=== PATIENT | female | born 1985 | race Hispanic/Latino ===

== ENCOUNTER 2016-10-14 01:27 | Emergency (ER) | payer SELFPAY ==
--- NOTE | 2016-10-15 01:39 | ED Elopement Review ---
ED Pt Elopement review - Results review Lab results: downtime results on paper) UA: Leukoesterase moderate, negative nitrite, moderate leukocytes, wbc 96, RBC 16, bacteria 1+, epithelial cells 0, mucous 3+, negative urine - Call Back decision Pt Call Back Decision: Call pt to return to ED [facility] (+ uti, needs to be evaluated and treated.)
== END 2016-10-14 01:41 | disposition left against medical advice (07) ==
LOC: ED 01:27
DX: R10.9 Unspecified abdominal pain (principal); Z53.21 Procedure and treatment not carried out due to patient leaving prior to being seen by health care provider

== ENCOUNTER 2016-11-25 13:59 | Emergency (ER) | payer SELFPAY ==
[2016-11-25 15:18] VITALS: BP 115/70
--- NOTE | 2016-11-25 16:13 | Emergency Department Report ---
HPI - General Chief Complaint: Recheck/Abnormal Lab/Rx Time Seen by Provider: 11/25/16 15:57 - HPI HPI: Patient is a 31-year-old female who presents to ED for treatment of urinary tract infection. Patient states she was called by the nurse from [facility] ER because her urine came back positive for bacterial infection. Patient states she has been having symptoms such as intracranial urination but denies dysuria hematuria or other symptoms. Patient also states she will write for refill of her clonazepam for her anxiety as she has been out of the medication for several days. He is not able to see her physician for the next 2 weeks. Patient denies fever/chills/nausea/vomiting/abdominal pain ED Past Medical Hx - Past Medical History Hx Psychiatric Treatment: Yes (ANXIETY / ADHD) Additional medical history: HERPES - Surgical History Hx Breast Surgery: Yes (BREAST AUGMENTATION) Additional Surgical History: - Social History Smoking Status: Never Smoker Substance Use Type: Alcohol, Prescribed - Medications Home Medications: Home Medications Medication Instructions Recorded Confirmed Last Taken Type Dextroamphetamine/Amphetamine 30 mg PO BID 11/25/16 11/25/16 Unknown History [Adderall 30 mg Tablet] Ibuprofen [Motrin] 800 mg PO Q8HR PRN #30 tablet 11/25/16 Unknown Rx LORazepam [Ativan] 1 mg PO BID #10 tab 11/25/16 Unknown Rx Sulfamethoxazole/Trimethoprim 1 each PO BID #14 tablet 11/25/16 Unknown Rx [Bactrim DS TAB] clonazePAM [KlonoPIN] 2 mg PO BID PRN 11/25/16 11/25/16 Unknown History valACYclovir [Valtrex] 500 mg PO BID #30 tablet 11/25/16 Unknown Rx ED Review of Systems ROS: Stated complaint: CALL BACK/UTI Other details as noted in HPI Constitutional: denies: chills, fever Eyes: denies: eye pain, eye discharge, vision change ENT: denies: ear pain, throat pain Respiratory: denies: cough, shortness of breath, wheezing Cardiovascular: denies: chest pain, palpitations Endocrine: no symptoms reported Gastrointestinal: denies: abdominal pain, nausea, diarrhea Genitourinary: frequency. denies: urgency, dysuria, hematuria, discharge Musculoskeletal: denies: back pain, joint swelling, arthralgia Skin: denies: rash, lesions Neurological: denies: headache, weakness, paresthesias Psychiatric: denies: anxiety, depression Hematological/Lymphatic: denies: easy bleeding, easy bruising Physical Exam - Physical Exam Vital Signs: Vital Signs 11/25/16 15:10 Temperature 98.2 F Pulse Rate 62 Respiratory 17 Rate Blood Pressure 115/70 O2 Sat by Pulse 100 Oximetry Physical Exam: GENERAL: Alert and oriented x3, no apparent distress, Normal Gait, atraumatic. HEAD: Head is normocephalic and a-traumatic. EYES: Extra ocular muscles are intact. Pupils are equal, round, and reactive to light and accommodation. NECK: Supple. Non edematous, No carotid bruits. No lymphadenopathy or thyromegaly. No C-spine tenderness LUNGS: Symetrical with respiration, No wheezing, no rales or crackles, CTAB. HEART: S1, S2 present, regular rate and rhythm without murmur, no rubs, no gallops. ABDOMEN: No organomegaly was noted,Positive bowel sounds, soft, and non- distended. . Nontender to palpation on all Quadrants, NO CVA tenderness. EXTREMITIES/MUSCULOSKELETAL: No cyanosis, clubbing, rash, lesions or edema. Full ROM bilaterally. UE/LE Pulses 2+ bilaterally. PSYCHIATRIC: Mood is congruent with affect, denies suicidal or homicidal ideations. SKIN: Warm and dry, No lesions, No ulceration or induration present. ED Course Vital Signs 11/25/16 15:10 Temperature 98.2 F Pulse Rate 62 Respiratory 17 Rate Blood Pressure 115/70 O2 Sat by Pulse 100 Oximetry ED Medical Decision Making - Medical Decision Making 31-year-old female presents with urinary tract infection ED course: Urinalysis ordered. Urinalysis shows a tract infection. She received Toradol in ED Discussed the patient cannot refill her clonazepam and Adderall and she will need to go see her physician to get a refill. His constipation to follow up with her psychiatrist and primary care physician. Patient is in no acute distress. Vital signs are normal Patient understands and states she will comply. Critical care attestation.: If time is entered above; I have spent that time in minutes in the direct care of this critically ill patient, excluding procedure time. ED Disposition Clinical Impression: Medication refill UTI (urinary tract infection) Qualifiers: Urinary tract infection type: acute cystitis Hematuria presence: with hematuria Qualified Code(s): N30.01 - Acute cystitis with hematuria Disposition: DISCHARGED TO HOME OR SELFCARE Is pt being admited?: No Does the pt Need Aspirin: No Condition: Stable Instructions: Urinary Tract Infection in Women (ED), Cellulitis (ED) Prescriptions: Ibuprofen [Motrin] 800 mg PO Q8HR PRN #30 tablet PRN Reason: Pain LORazepam [Ativan] 1 mg PO BID #10 tab Sulfamethoxazole/Trimethoprim [Bactrim DS TAB] 1 each PO BID #14 tablet valACYclovir [Valtrex] 500 mg PO BID #30 tablet Referrals: PRIMARY CARE, [Primary Care Provider] - 3-5 Days Forms: Work/School Release Form(ED) Time of Disposition: 16:54
[2016-11-25 16:40] LABS: Bacteria,Urine 1+ /HPF (Negative); Bilirubin,Urine NEG (Negative); Blood,Urine NEG (Negative); Ketones,Urine NEG (Negative); Leukocyte Esterase,Urine NEG (Negative); Mucus,Urine FEW /HPF; Nitrite,Urine NEG (Negative); Protein,Urine <15 mg/dL mg/dL (Negative); Urobilinogen,Urine < 2.0 mg/dL (<2.0)
[2016-11-25] MEDS ORDERED: TORADOL IM ONE (16:42)
== END 2016-11-25 17:07 | disposition home or self-care (01) ==
LOC: ED 13:59
DX: N30.01 Acute cystitis with hematuria (principal); Z76.0 Encounter for issue of repeat prescription; F41.9 Anxiety disorder, unspecified; F90.9 Attention-deficit hyperactivity disorder, unspecified type
CPT/HCPCS: 81001; 81025; 96372; 99283; J1885

== ENCOUNTER 2016-12-25 22:26 | Emergency (ER) | payer SELFPAY ==
[2016-12-25] MEDS ORDERED: PEPCID ONE (22:45)
[2016-12-25] MEDS ORDERED: BENADRYL PO ONE ×2 (22:45→22:48)
[2016-12-25] MEDS ORDERED: PEPCID PO ONE (22:48)
[2016-12-25 22:53] VITALS: BP 149/74
== END 2016-12-26 00:50 | disposition left against medical advice (07) ==
LOC: ED 22:26
DX: R21 Rash and other nonspecific skin eruption (principal); Z53.21 Procedure and treatment not carried out due to patient leaving prior to being seen by health care provider

== ENCOUNTER 2017-02-27 15:15 | Emergency (ER) | payer MEDICAID, OTHER ==
[2017-02-27 18:11] VITALS: BP 112/68
--- NOTE | 2017-02-27 21:04 | Emergency Department Report ---
Entered by STAS WHITE, acting as scribe for YAYO LOPEZ PA. HPI - General Chief Complaint: Medical Clearance Time Seen by Provider: 02/27/17 17:06 - HPI HPI: 31 y/o female with a PMHx of herpes, ADHD, and anxiety presents to the ED c/o a medication refill for Acyclovir 500 mg for herpes flare-up. Patient states she ran out of Acyclovir 500 mg BID 1 day ago. Denies fever, chills, abdominal pain , nausea, vomiting, chest pain, SOB, headache, and dizziness. Patient states she recently got insurance and wants referrals to primary care physicians. Patient also requests a refills for Clonazepam 2mg. NKDA. ED Past Medical Hx - Past Medical History Previous Medical History?: Yes Hx Psychiatric Treatment: Yes (ANXIETY / ADHD) Additional medical history: HERPES - Surgical History Past Surgical History?: Yes Hx Breast Surgery: Yes (BREAST AUGMENTATION) Additional Surgical History: - Social History Smoking Status: Never Smoker Substance Use Type: Alcohol - Medications Home Medications: Home Medications Medication Instructions Recorded Confirmed Last Taken Type Dextroamphetamine/Amphetamine 30 mg PO BID 11/25/16 11/25/16 Unknown History [Adderall 30 mg Tablet] LORazepam [Ativan] 1 mg PO BID #10 tab 11/25/16 Unknown Rx Sulfamethoxazole/Trimethoprim 1 each PO BID #14 tablet 11/25/16 Unknown Rx [Bactrim DS TAB] Ibuprofen [Motrin 800 MG tab] 800 mg PO Q8HR PRN #30 tablet 02/27/17 Unknown Rx clonazePAM [KlonoPIN] 2 mg PO DAILY PRN #12 tablet 02/27/17 Unknown Rx valACYclovir [Valtrex] 500 mg PO TID #40 tablet 02/27/17 Unknown Rx ED Review of Systems ROS: Stated complaint: RX REFILL Other details as noted in HPI Comment: All other systems reviewed and negative Constitutional: denies: chills, diaphoresis, fever, weakness Eyes: denies: eye pain, eye discharge, vision change ENT: denies: ear pain, throat pain Respiratory: denies: cough, orthopnea, shortness of breath, SOB with exertion, SOB at rest, stridor, wheezing Cardiovascular: denies: chest pain, palpitations, dyspnea on exertion, orthopnea , edema, syncope, paroxysmal nocturnal dyspnea Endocrine: no symptoms reported Gastrointestinal: denies: abdominal pain, nausea, vomiting, diarrhea Musculoskeletal: denies: back pain, joint swelling, arthralgia Skin: denies: rash, lesions Neurological: denies: headache, weakness, numbness, paresthesias Psychiatric: denies: anxiety, depression Hematological/Lymphatic: denies: easy bleeding, easy bruising Physical Exam - Physical Exam Vital Signs: Vital Signs 02/27/17 15:33 Temperature 98.5 F Pulse Rate 86 Respiratory 16 Rate Blood Pressure 101/71 O2 Sat by Pulse 100 Oximetry General: GENERAL: Patient is alert and oriented x 3. No apparent distress, normal gait, atraumatic. Physical Exam: HEAD: Head is normocephalic and atraumatic. EYES: Extraocular movements are intact. EARS: Symmetrical, atraumatic, non tender. NOSE: Nose symmetrical, nontender. Nares appeared normal. MOUTH:Mouth is well hydrated and without lesions. NECK: Supple. Non edematous, no carotid bruits. No lymphadenopathy or thyromegaly. LUNGS: Symmetrical with respiration. No wheezing, rales or crackles, CTAB. HEART: Regular rate and rhythm with normal S1/S2 present. No murmurs, rubs, or gallops. ABDOMEN: Soft, nondistended. Nontender to palpation on all quadrants. EXTREMITIES/MUSCULOSKELETAL: ROM intact, 2+ pulses in UE/LE, no pitting edema SKIN: Warm and dry. No lesions, ulceration or induration present NEUROLOGIC: No focal deficit. ED Course Vital Signs 02/27/17 15:33 Temperature 98.5 F Pulse Rate 86 Respiratory 16 Rate Blood Pressure 101/71 O2 Sat by Pulse 100 Oximetry ED Medical Decision Making - Medical Decision Making 31 year-old female presents with a medication refill for Acyclovir 500 mg for herpes flare-up. Discussed the patient acyclovir medication as prescribed. Referrals for psychiatrist, [facility], primary care physician or given to patient. Discussed patient's of the tissue With this referrals as to monitor and continue her care. Discussed the patient to follow instructions as given and follow-up with [facility] and primary care physician as referred. Patient states she has been approved for Medicaid and just needed the referral and will follow up with her referrals for continuation of her care and refills on her medication Discuss her symptoms return or worsen to return to the ED Vital signs are normal patient is in no acute distress Critical care attestation.: If time is entered above; I have spent that time in minutes in the direct care of this critically ill patient, excluding procedure time. ED Disposition Clinical Impression: Medication refill, Hx of herpes simplex infection Disposition: TO HOME OR SELFCARE Is pt being admited?: No Does the pt Need Aspirin: No Condition: Stable Instructions: Genital Herpes Simplex (ED) Prescriptions: clonazePAM [KlonoPIN] 2 mg PO DAILY PRN #12 tablet PRN Reason: Anxiety Ibuprofen [Motrin 800 MG tab] 800 mg PO Q8HR PRN #30 tablet PRN Reason: Pain valACYclovir [Valtrex] 500 mg PO TID #40 tablet Referrals: PRIMARY CAREMD [Primary Care Provider] - 3-5 Days [facility] [Outside] - 3-5 Days MELONIE SMITH MD [Referring] - 3-5 Days KANA TERRY MD [Referring] - 3-5 Days [facility] [Outside] - 3-5 Days Forms: Accompanied Note, Work/School Release Form(ED) Time of Disposition: 17:51 This documentation as recorded by the CINDY sim JASMINE,accurately reflects the service I personally performed and the decisions made by ,YAYO LOPEZ PA.
== END 2017-02-27 18:11 | disposition home or self-care (01) ==
LOC: ED 15:15
DX: Z76.0 Encounter for issue of repeat prescription (principal); F90.9 Attention-deficit hyperactivity disorder, unspecified type; F41.9 Anxiety disorder, unspecified
CPT/HCPCS: 99282

== ENCOUNTER 2018-08-28 17:10 | Emergency (ER) | payer OTHER ==
[2018-08-28 17:31] VITALS: BP 126/70
--- NOTE | 2018-08-28 18:55 | Emergency Department Report ---
ED General Adult HPI - General Chief complaint: Seizure Stated complaint: SEIZURE Time Seen by Provider: 08/28/18 18:55 Source: patient Mode of arrival: Ambulatory Limitations: No Limitations - History of Present Illness Initial comments: Patient is a 32-year-old female past medical history of seizures who presents with wanting Xanax. Patient states that she gets 2000 mg of Xanax. Patient is also complaining of GERD she states that she recently moved to [place] and that she has been out of her seizure medicine. Patient denies having any pain any n ausea or any vomiting. - Related Data Home Medications Medication Instructions Recorded Confirmed Last Taken Dextroamphetamine/Amphetamine 30 mg PO BID 11/25/16 11/25/16 Unknown [Adderall 30 mg Tablet] Previous Rx's Medication Instructions Recorded Last Taken Type LORazepam [Ativan] 1 mg PO BID #10 tab 11/25/16 Unknown Rx Sulfamethoxazole/Trimethoprim 1 each PO BID #14 tablet 11/25/16 Unknown Rx [Bactrim DS TAB] Ibuprofen [Motrin 800 MG tab] 800 mg PO Q8HR PRN #30 tablet 02/27/17 Unknown Rx clonazePAM [KlonoPIN] 2 mg PO DAILY PRN #12 tablet 02/27/17 Unknown Rx valACYclovir [Valtrex] 500 mg PO TID #40 tablet 02/27/17 Unknown Rx Naproxen [Naprosyn] 500 mg PO BID PRN #12 tablet 07/21/18 Unknown Rx Allergies Allergy/AdvReac Type Severity Reaction Status Date / Time No Known Allergies Allergy Verified 11/25/16 15:05 ED Review of Systems ROS: Stated complaint: SEIZURE Other details as noted in HPI Constitutional: denies: chills, fever Eyes: denies: eye pain, eye discharge, vision change ENT: denies: ear pain, throat pain Respiratory: denies: cough, shortness of breath, wheezing Cardiovascular: denies: chest pain, palpitations Endocrine: no symptoms reported Gastrointestinal: denies: abdominal pain, nausea, diarrhea Genitourinary: denies: urgency, dysuria, discharge Musculoskeletal: denies: back pain, joint swelling, arthralgia Skin: denies: rash, lesions Neurological: denies: headache, weakness, paresthesias Psychiatric: denies: anxiety, depression Hematological/Lymphatic: denies: easy bleeding, easy bruising ED Past Medical Hx - Past Medical History Hx Seizures: Yes Hx Psychiatric Treatment: Yes (ANXIETY / ADHD) Additional medical history: HERPES - Surgical History Hx Breast Surgery: Yes (BREAST AUGMENTATION) Additional Surgical History: - Social History Smoking Status: Never Smoker Substance Use Type: None - Medications Home Medications: Home Medications Medication Instructions Recorded Confirmed Last Taken Type Dextroamphetamine/Amphetamine 30 mg PO BID 11/25/16 11/25/16 Unknown History [Adderall 30 mg Tablet] LORazepam [Ativan] 1 mg PO BID #10 tab 11/25/16 Unknown Rx Sulfamethoxazole/Trimethoprim 1 each PO BID #14 tablet 11/25/16 Unknown Rx [Bactrim DS TAB] Ibuprofen [Motrin 800 MG tab] 800 mg PO Q8HR PRN #30 tablet 02/27/17 Unknown Rx clonazePAM [KlonoPIN] 2 mg PO DAILY PRN #12 tablet 02/27/17 Unknown Rx valACYclovir [Valtrex] 500 mg PO TID #40 tablet 02/27/17 Unknown Rx Naproxen [Naprosyn] 500 mg PO BID PRN #12 tablet 07/21/18 Unknown Rx ED Physical Exam - General Limitations: No Limitations General appearance: alert, in no apparent distress - Head Head exam: Present: atraumatic, normocephalic - Eye Eye exam: Present: normal appearance - ENT ENT exam: Present: mucous membranes moist - Neck Neck exam: Present: normal inspection - Respiratory Respiratory exam: Present: normal lung sounds bilaterally. Absent: respiratory distress - Cardiovascular Cardiovascular Exam: Present: regular rate, normal rhythm. Absent: systolic murmur, diastolic murmur, rubs, gallop - GI/Abdominal GI/Abdominal exam: Present: soft, normal bowel sounds - Extremities Exam Extremities exam: Present: normal inspection - Back Exam Back exam: Present: normal inspection - Neurological Exam Neurological exam: Present: alert, oriented X3 - Psychiatric Psychiatric exam: Present: normal affect, normal mood - Skin Skin exam: Present: warm, dry, intact, normal color. Absent: rash ED Course Vital Signs 08/28/18 17:23 Temperature 98.9 F Pulse Rate 80 Respiratory 18 Rate Blood Pressure 126/70 O2 Sat by Pulse 100 Oximetry ED Medical Decision Making - Medical Decision Making Chief medical diagnosis: Malingering Differential medical diagnosis: Drug-seeking behavior, drug abuse On urinalysis and urine drug screen Urine drug screen is negative check Alivia BUS OPERATOR aware patient has gone to multiple pharmacies and physicians for drugs. Critical care attestation.: If time is entered above; I have spent that time in minutes in the direct care of this critically ill patient, excluding procedure time. ED Disposition Clinical Impression: History of seizure, Drug-seeking behavior, Malingering GERD (gastroesophageal reflux disease) Qualifiers: Esophagitis presence: esophagitis presence not specified Qualified Code(s): K21.9 - Gastro-esophageal reflux disease without esophagitis Disposition: TO HOME OR SELFCARE Is pt being admited?: No Does the pt Need Aspirin: No Condition: Stable
[2018-08-28 19:01] LABS: Amphetamine Screen,Urine PRESUMPTIVE NEGATIVE; Bacteria,Urine 1+ /HPF (Negative); Benzodiazepines Screen,Urine PRESUMPTIVE NEGATIVE; Bilirubin,Urine NEG (Negative); Blood,Urine SM (Negative); Cannabinoid Screen,Urine PRESUMPTIVE NEGATIVE; Cocaine Screen,Urine PRESUMPTIVE NEGATIVE; Color,Urine Straw (Yellow); Methadone Screen,Urine PRESUMPTIVE NEGATIVE; Mucus,Urine FEW /HPF; Opiate Screen,Urine PRESUMPTIVE NEGATIVE; Protein,Urine <15 mg/dL mg/dL (Negative); Urobilinogen,Urine < 2.0 mg/dL (<2.0)
[2018-08-28] MEDS ORDERED: LIDOCAINE VISCOUS 2% PO ONE (19:07)
== END 2018-08-28 20:15 | disposition home or self-care (01) ==
LOC: ED 17:10
DX: R56.9 Unspecified convulsions (principal); K21.9 Gastro-esophageal reflux disease without esophagitis; F41.9 Anxiety disorder, unspecified; Z76.5 Malingerer [conscious simulation]
CPT/HCPCS: 80307; 81001; 99283